=== PATIENT | female | born 1990 | race Caucasian/White ===

== ENCOUNTER 2020-12-01 10:12 | Emergency (ER) | payer OTHER ==
[~2020-12-01 10:12] MED LIST: ASPIRIN CHEWABL81 MG PO; NAPROXEN250 MG PO; NITROSTAT0.4 MG SL; NORCO 5-325 TA1 EACH PO
[2020-12-01 11:26] LABS: HEMOGLOBIN 13.1 gm/dl (12.3-15.3); RED BLOOD COUNT 4.4 M/UL (4.00-5.10); WHITE BLOOD COUNT 7.7 K/UL (4.5-11.0)
[2020-12-01 11:50] LABS: BUN/CREATININE RATIO 19 (0-10)
== END 2020-12-01 13:03 | disposition home or self-care (01) ==
LOC: ER1 10:12
PROVIDERS: Physician Assistant
DX: R52 Pain, unspecified (principal); R11.0 Nausea; R53.83 Other fatigue
CPT/HCPCS: 80053; 81001; 82550; 84703; 85025; 87086; 99283